=== PATIENT | male | born 1975 | race Caucasian/White ===

== ENCOUNTER 2020-03-29 13:32 | Outpatient (CLI) | payer SELFPAY | END 2020-03-29 23:59 | disposition home or self-care (01) | LOC: CFH 13:32 | PROVIDERS: ATTEND Chiropractor | DX: Z00.00 Encounter for general adult medical examination without abnormal findings (principal); Z02.5 Encounter for examination for participation in sport; R53.83 Other fatigue | CPT/HCPCS: 36415 ==